=== PATIENT | female | born 1945 | race Caucasian/White ===

== ENCOUNTER → 2022-01-19 08:22 | Outpatient (CLI) | payer MEDICARE, OTHER, SELFPAY ==
[2022-01-19 10:30] LABS: COVID19 -Nasal RAPID Negative (Negative)
--- NOTE | 2022-01-19 18:53 | DI.NM.S_ITS ---
DATE OF SERVICE: INDICATION: Pharmacological perfusion study. INDICATION: Shortness of breath with underlying hypertension. RADIOPHARMACEUTICAL: 25.9 mCi technetium-99m Myoview IV was injected at stress and 10.8 mCi technetium-99m Myoview IV was injected at rest. CARDIAC STRESS: The patient underwent IV Lexiscan perfusion study under the supervision of an attending staff as per standard protocol. The patient remained hemodynamically stable. Baseline blood pressure 130/80 and heart rate 66 beats per minute with rhythm sinus. During stress, no convincing ischemic changes or significant arrhythmias seen. The patient had moderate shortness of breath and headache, which got improved after coffee intake. RAW DATA: There is breast shadow seen. There is increased subdiaphragmatic activity near the inferior border as well as apex. GATED STUDY: Resting LV ejection fraction 59 percent and stress LV ejection fraction 65 percent without any obvious wall motion abnormalities. Resting end- diastolic volume 114 mL. TID ratio 0.89, which is within normal limits. Lung/heart ratio 0.27, which is within normal limits. MYOCARDIAL PERFUSION SCAN: Stress supine, resting supine, and stress prone images were compared to each other. Resting supine images revealed moderate- size, moderately decreased perfusion of mid to distal anterior septum as well as mildly decreased perfusion of basal anterolateral wall. Stress supine images revealed mildly decreased perfusion of basal anterolateral wall as well as mid to distal anterior septum. It got significantly improved during stress prone images; however, stress prone images remaining having mildly decreased perfusion of distal anterior septum. No reversible ischemia. CONCLUSION: I will call this study likely a normal myocardial perfusion study with evidence of breast tissue and as well as diaphragmatic tissue attenuation artifact, which got improved during stress prone images. On raw data, there was breast shadow and increased subdiaphragmatic activity, as stated above. Left ventricular function is preserved without any wall motion abnormalities, which goes against the diagnosis of previous transmural myocardial infarction. No ischemic electrocardiographic changes. Hence, overall this is a low-risk myocardial perfusion study. MORENO ARROYO - IRIS/darrell/KORY doc#: [id number]/job#: [id number] dd: 01/19/2022 17:27:00 dt: 01/19/2022 18:36:00 DICTATING MD/COPIES TO: Shahab Hodges MD COPIES MNE: NATHAN;
== END ==
PROVIDERS: Internal Medicine Cardiovascular Disease; PCP Family Medicine; Referring Provider Family Medicine; Visit Provider Family Medicine
DX: R06.09 Other forms of dyspnea (principal); Z20.822 Contact with and (suspected) exposure to COVID-19
CPT/HCPCS: 78452; 87635; 93017; A9502; J2785

== ENCOUNTER 2024-01-17 15:09 | Emergency (ER) | payer MEDICARE, OTHER, SELFPAY ==
[2024-01-17 15:11] VITALS: BP 186/88; PULSE 74; RESP 16; TEMP 37; O2SAT 96
[2024-01-17 15:13] VITALS: BP 186/88; PULSE 74; O2SAT 96
[2024-01-17 15:30] VITALS: BP 173/77; PULSE 68; O2SAT 97
[2024-01-17 16:00] VITALS: BP 188/81; PULSE 64; O2SAT 97
[2024-01-17 16:19] VITALS: BP 189/83; PULSE 71; O2SAT 97
[2024-01-17 16:30] VITALS: BP 162/99; PULSE 68; O2SAT 97
--- NOTE | 2024-01-17 16:57 | ED.FALL ---
HPI - Fall General Chief Complaint: Fall Stated Complaint: GLF Time Seen by Provider: 01/17/24 16:54 Source: patient and EMS Mode of arrival: EMS History of Present Illness HPI Narrative: 78-year-old female fell at assisted care facility, initially seemed to have hip pain discomfort that seems to be resolved. She did not apparently hit her head. She denies pain to her scalp, posterior head, face, neck, upper back, lower back, buttocks, chest, abdomen, pelvis. She had left and right hip discomfort initially after her fall but apparently this is now resolved. She has no pain to her left upper extremity, right upper extremity, left lower extremity, right lower extremity. She believes that she had a tripping event that caused her to fall. She denied any preceding weakness, chest pain, shortness of breath, palpitation symptoms. She has not been recently ill. Review of Systems Review of Systems Narrative: see HPI Exam Narrative Exam Narrative: GENERAL: Well-developed patient, in mild distress. HEAD: Atraumatic. Normocephalic. EYES: Pupils equal round and reactive. Extraocular motions intact. No scleral icterus. No injection or drainage. ENT: Nose without bleeding, purulent drainage. Throat without erythema, tonsillar hypertrophy or exudate. Airway patent. NECK: Trachea midline. Non tender CARDIOVASCULAR: Regular rate and rhythm without murmurs, gallops, or rubs. RESPIRATORY: Clear to auscultation. Breath sounds equal bilaterally. No wheezes, rales, or rhonchi. GASTROINTESTINAL: Abdomen soft, non-tender, nondistended. EXTREMITIES: No edema or joint tenderness. No tenderness to either hip. No limb length discrepancy. She is able to flex and extend both hips and both knees well. No apparent discomfort. No gross deformity or tenderness to lower extremities or upper extremities. BACK: Nontender without deformity or crepitance. No flank tenderness. NEURO: AOx3. Nonfocal neuro exam. SKIN: No rash or erythema of visible areas Initial Vital Signs Initial Vital Signs: Vital Signs Temperature 98.6 F 01/17/24 15:11 Pulse Rate 74 01/17/24 15:11 Respiratory Rate 16 01/17/24 15:11 Blood Pressure 186/88 H 01/17/24 15:11 Pulse Oximetry 96 01/17/24 15:11 Oxygen Delivery Method Room Air 01/17/24 15:11 Course Vital Signs Vital signs: Vital Signs - 8 hr 01/17/24 15:11 01/17/24 15:13 01/17/24 15:13 Temperature 98.6 F Pulse Rate 74 74 Respiratory Rate 16 Blood Pressure 186/88 H 186/88 H Pulse Oximetry 96 96 Oxygen Delivery Method Room Air 01/17/24 15:30 01/17/24 15:30 01/17/24 16:00 Temperature Pulse Rate 68 Respiratory Rate Blood Pressure 173/77 H 188/81 H Pulse Oximetry 97 Oxygen Delivery Method 01/17/24 16:00 01/17/24 16:19 01/17/24 16:19 Temperature Pulse Rate 64 71 Respiratory Rate Blood Pressure 189/83 H Pulse Oximetry 97 97 Oxygen Delivery Method 01/17/24 16:30 01/17/24 16:30 Temperature Pulse Rate 68 Respiratory Rate Blood Pressure 162/99 H Pulse Oximetry 97 Oxygen Delivery Method MDM - Fall Lab Data Labs: Urine Dip Bedside Urine Glucose Negative Bedside Urine Bilirubin - Negative Bedside Urine Ketone - Negative Urine Specific [place] 1.005 Bedside Urine Occult Blood - Negative Bedside Urine pH 6.0 Bedside Urine Protein - Negative Bedside Urine Urobilinogen - Negative Bedside Urine Nitrite - Negative Bedside Urine Leukocytes - Negative Esterase MDM Narrative Medical decision making narrative: 78-year-old female with ground level fall at assisted care facility, initially with bilateral hip complaints that seemed to have resolved. No other obvious injuries or complaints. On exam she seems to have no limb length discrepancy, no tenderness at either hip, in fact as able to flex and extend at hips and knees easily. She was ambulatory in the department with walker per nursing. She has no obvious trauma on exam at this time. Discharged back to assisted care facility. Return if any change worsening symptoms or any concerns Discharge Plan Departure Patient Disposition: Home Clinical Impression: Fall from ground level, Left hip pain, Right hip pain Activity Restrictions/Additional Instructions: Fall from ground level mechanical in nature at assisted care facility, initially having complaints of pain to both hips. This seems to have resolved. No tenderness on hip exam is, able to flex and extend fully at the hips and knees. No obvious tenderness on examination of the lower extremities or upper extremities. No obvious face or truncal injuries. Symptoms seemed to be resolved. She was able to ambulate with a walker without difficulty in the emergency department, including pivot and turning motions. Return back to assisted care facility. Return to this/nearest emergency department for any change worsening symptoms or any concerns prior Referrals: Yossi Elmore MD [Primary Care Provider] - Stand Alone Forms: Patient Portal/API
== END 2024-01-17 18:51 | disposition home or self-care (01) ==
PROVIDERS: Emergency Provider Emergency Medicine; PCP Family Medicine
DX: M25.552 Pain in left hip (principal); M25.551 Pain in right hip; W01.0XXA Fall on same level from slipping, tripping and stumbling without subsequent striking against object, initial encounter; Y92.099 Unspecified place in other non-institutional residence as the place of occurrence of the external cause
CPT/HCPCS: 81003; 99282